=== PATIENT | male | born 1950 | race Caucasian/White ===

== ENCOUNTER → 2017-06-25 13:24 | Outpatient (CLI) | payer MEDICARE, OTHER, SELFPAY ==
--- NOTE | 2017-06-25 13:29 | CT_ITS ---
STUDY: LOW DOSE CT LUNG CANCER SCREENING REASON FOR EXAM: Male, 66 years old. TOBACCO ABUSE SMOKER X40+ YEARS 1.5PPD QUIT X1.5 YEARS AGO +HTN-RX CONTROLLED RADIATION DOSAGE (If Supplied By Facility): CTDIvol = ( 3.40 ) mGy, DLP = ( 112.31 ) mGycm TECHNIQUE: No contrast was administered. Low dose technique was utilized (average mAS-38 and kVp 120). 1.25 mm axial source images with a slice interval of 1.25-mm were reconstructed in lung windows. 2.5 mm axial source images with a slice interval of 2.5-mm were reconstructed in lung windows. 5.0 mm axial source images with a slice interval of 5.0-mm were reconstructed in soft tissue windows. Nodule measured using lung windows on PACS and/or independent workstation with automated measurement of minimum and maximum diameter. Nodule measurement reported as average diameter rounded to the nearest whole number. Growth is defined as an increase ins size of greater than 1.5 mm. COMPARISON: None. NODULES: There is mild thickening of the bronchial lundy in the perihilar regions suggesting chronic bronchitis. There is no demonstrated pleural abnormality. Normal heart and pericardium. Normal mediastinum. Normal hilar regions. Normal unenhanced pulmonary arteries. Normal aorta arch and descending thoracic aorta. There is an old compression fracture of T7 . Bilateral cervical ribs are noted. There is no demonstrated abnormality of the visualized upper abdomen. CT/Low Dose CT Lung Screening IMPRESSION: Lung-RADS category 2. There is an old compression fracture of T7 . Bilateral cervical ribs are noted. Recommendation: Routine screening CT scan in one year. IMPORTANT NOTES FOR USE: ACR Lung-RADS Version 1.0 Assessment Categories Release Date: June 23, 2013 Category: Coded 0-4 bases on nodule(s) with highest degree of suspicion. Negative screen is defined as categories 1 and 2; a positive screen is defined as categories 3 and 4. Category 3 and 4A nodules that are unchanged on interval CT should be coded as category 2, and individuals returned to screening in 12 months. Category 4X: Category 3 or 4 nodules with additional imaging findings that increase the suspicion of lung cancer, such as spiculation, GGN that doubles in size in 1 year, enlarged lymph notes, etc. Category Modifiers: S (significant finding unrelated to lung cancer) and C (prior history of treated lung cancer) may be added to the 0-4 Lung-RADS Electronically Signed: Rayray Hood MD at 11:40 EDT Tel , Service support ,
== END ==
PROVIDERS: Family Provider Family Medicine; PCP Family Medicine; Visit Provider Internal Medicine Pulmonary Disease
DX: Z87.891 Personal history of nicotine dependence (principal)
CPT/HCPCS: G0297

== ENCOUNTER → 2017-09-12 12:36 | Outpatient (CLI) | payer MEDICARE, OTHER, SELFPAY ==
--- NOTE | 2017-09-12 12:38 | ECHOCS_ITS ---
Reason For Study: Afib, Aflutter Procedure This was a 2D Doppler, Color Flow transthoracic echocardiogram. Exam performed in department. Left Ventricle Normal LV size. Sigmoid septum. Left ventricular systolic function is normal. The estimated ejection fraction is 65 %. No regional wall motion abnormalities noted. Right Ventricle Normal RV size. Normal systolic function. Atria The left atrium is moderately enlarged. The right atrium is mildly enlarged. Mitral Valve Normal mitral valve. Trivial eccentric mitral valve insufficiency. Tricuspid Valve Normal tricuspid valve. Mild tricuspid valve insufficiency. Pulmonary artery systolic pressure is 36 mmHg. Aortic Valve Trisinus/trileaflet aortic valve. Moderate focal aortic valve calcification. Mild (1+) eccentric aortic valve insufficiency. Pulmonic Valve Normal pulmonic valve. Great Vessels Normal aortic root. The pulmonary artery is normal size. Normal inferior vena cava. Pericardium/Pleural No pericardial effusion. Medication Definity0.6ml given slow IV push to enhance endocardial definition. MMode/2D Measurements & Calculations LVIDd: 4.9 cm IVSd: 1.7 cm Ao root diam: 3.6 cm LVIDs: 3.2 cm LVPWd: 1.1 cm RVDd: 4.9 cm FS: 35.6 % LAV(MOD-bp): 130.6 ml LAV(MOD-bp) Indexed: 52.9 ml/m2 LA A4 area: 34.6 cm2 RA A4 area: 26.8 cm2 LAV(MOD-sp2): 142.1 ml LAV(MOD-sp4): 120.3 ml Doppler Measurements & Calculations MV E max clemente: 91.9 cm/sec Ao V2 max: 132.3 cm/sec LV V1 max: 92.8 cm/sec Ao max P.1 mmHg LV V1 max P.5 mmHg Ao V2 mean: 97.5 cm/sec Ao mean P.2 mmHg Ao V2 VTI: 27.2 cm PA V2 max: 94.7 cm/sec TR max clemente: 284.1 cm/sec TR max P.3 mmHg Interpretation Summary Normal LV size. Left ventricular systolic function is normal. The estimated ejection fraction is 65 %. Mild tricuspid valve insufficiency. Contrast injection was performed. Ordering Physician: Magen Callejas Referring Physician: Magen Callejas Performed By: Meghan Gamez, AVERY, RVT
== END ==
PROVIDERS: Family Provider Family Medicine; PCP Family Medicine; Visit Provider Internal Medicine Cardiovascular Disease
DX: I48.91 Unspecified atrial fibrillation (principal); I47.2 Ventricular tachycardia
CPT/HCPCS: 93225; 93226; 93306; Q9957; A4216; C8929

== ENCOUNTER → 2018-06-25 12:42 | Outpatient (CLI) | payer MEDICARE, OTHER, SELFPAY ==
[2018-04-26 13:01] VITALS: BMI 26.8
--- NOTE | 2018-06-25 12:45 | CT_ITS ---
STUDY: LOW DOSE CT LUNG CANCER SCREENING REASON FOR EXAM: Male, 67 years old. Smoking history, follow-up RADIATION DOSAGE (If Supplied By Facility): CTDIvol = ( 4.02 ) mGy, DLP = ( 142.95 ) mGycm TECHNIQUE: No contrast was administered. Low dose technique was utilized (average mAS-38 and kVp 120). 1.25 mm axial source images with a slice interval of 1.25-mm were reconstructed in lung windows. 2.5 mm axial source images with a slice interval of 2.5-mm were reconstructed in lung windows. 5.0 mm axial source images with a slice interval of 5.0-mm were reconstructed in soft tissue windows. Nodule measured using lung windows on PACS and/or independent workstation with automated measurement of minimum and maximum diameter. Nodule measurement reported as average diameter rounded to the nearest whole number. Growth is defined as an increase ins size of greater than 1.5 mm. COMPARISON: CT chest 06/25/2017. FINDINGS: Lung nodules Stable 3 mm peripheral right lower lobe nodule on series 249. No new or enlarging pulmonary nodule. No focal pulmonary consolidation. Lungs COPD: There is mild bilateral upper lobe paraseptal emphysema. There is mild biapical pleural parenchymal scarring. Fibrosis: None. Lymph nodes: None. Other findings: None. Pleural space Effusion: None. Calcification: None. Thickening: None. Heart Heart size: Mildly enlarged. Coronary calcification: Moderate to marked coronary artery calcifications. Pericardial effusion: None. Other findings: There are mild aortic calcification. Upper abdomen: None. Thorax: Again seen is mild anterior wedging of T7. Base of neck: None. CT/Low Dose CT Lung Screening IMPRESSION: Lung-RADS category 2 - Continue annual screening with LDCT in 12 months. IMPORTANT NOTES FOR USE: ACR Lung-RADS Version 1.0 Assessment Categories Release Date: June 23, 2013 Category: Coded 0-4 bases on nodule(s) with highest degree of suspicion. Negative screen is defined as categories 1 and 2; a positive screen is defined as categories 3 and 4. Category 3 and 4A nodules that are unchanged on interval CT should be coded as category 2, and individuals returned to screening in 12 months. Category 4X: Category 3 or 4 nodules with additional imaging findings that increase the suspicion of lung cancer, such as spiculation, GGN that doubles in size in 1 year, enlarged lymph notes, etc. Category Modifiers: S (significant finding unrelated to lung cancer) and C (prior history of treated lung cancer) may be added to the 0-4 Lung-RADS Electronically Signed: Sydnie Rodriguez, at 16:49 EDT Tel , Service support ,
== END ==
PROVIDERS: Referring Provider Internal Medicine Pulmonary Disease; Visit Provider Internal Medicine Pulmonary Disease
DX: Z87.891 Personal history of nicotine dependence (principal)
CPT/HCPCS: G0297

== ENCOUNTER → 2019-06-26 12:43 | Outpatient (CLI) | payer MEDICARE, OTHER, SELFPAY ==
[2018-04-26 13:01] VITALS: BMI 26.8
[2019-01-28 08:46] VITALS: BMI 30.2
--- NOTE | 2019-06-26 12:47 | CT_ITS ---
STUDY: LOW DOSE CT LUNG CANCER SCREENING REASON FOR EXAM: Male, 68 years old. Tobacco use, stopped smoking 2 years ago, smoked 1.5 packs/day x 40 years, hypertension, 220lbs. RADIATION DOSAGE (If Supplied By Facility): CTDIvol = ( 4.02 ) mGy, DLP = ( 142.45 ) mGycm TECHNIQUE: No contrast was administered. Low dose technique was utilized (average mAS-38 and kVp 120). 1.25 mm axial source images with a slice interval of 1.25-mm were reconstructed in lung windows. 2.5 mm axial source images with a slice interval of 2.5-mm were reconstructed in lung windows. 5.0 mm axial source images with a slice interval of 5.0-mm were reconstructed in soft tissue windows. Nodule measured using lung windows on PACS and/or independent workstation with automated measurement of minimum and maximum diameter. Nodule measurement reported as average diameter rounded to the nearest whole number. Growth is defined as an increase ins size of greater than 1.5 mm. COMPARISON: Comparison is made with prior examination dated June 25, 2018. NODULES: Stable 3 mm noncalcified nodule in the peripheral lateral anterior aspect of the right lower lobe. Emphysema: Stable scarring in the upper lobes more prominent on the right side. Mild degree of emphysematous changes bilaterally. Aorta: Mild calcific plaques of the aortic arch. Coronary arteries: Coronary artery calcification. Heart: Prominence of the left atrium. Mediastinal nodes: Benign appearing mediastinal lymph nodes. Other chest and abdominal findings: Anterior wedging of the T7 vertebrae. CT/Low Dose CT Lung Screening IMPRESSION: Lung-RADS category 2 - Continue annual screening with LDCT in 12 months. IMPORTANT NOTES FOR USE: ACR Lung-RADS Version 1.0 Assessment Categories Release Date: June 23, 2013 Category: Coded 0-4 bases on nodule(s) with highest degree of suspicion. Negative screen is defined as categories 1 and 2; a positive screen is defined as categories 3 and 4. Category 3 and 4A nodules that are unchanged on interval CT should be coded as category 2, and individuals returned to screening in 12 months. Category 4X: Category 3 or 4 nodules with additional imaging findings that increase the suspicion of lung cancer, such as spiculation, GGN that doubles in size in 1 year, enlarged lymph notes, etc. Category Modifiers: S (significant finding unrelated to lung cancer) and C (prior history of treated lung cancer) may be added to the 0-4 Lung-RADS Electronically Signed: Corey Awad, at 14:06 EDT , Service support ,
== END ==
PROVIDERS: Referring Provider Internal Medicine Pulmonary Disease; Visit Provider Internal Medicine Pulmonary Disease
DX: Z87.891 Personal history of nicotine dependence (principal)
CPT/HCPCS: G0297

== ENCOUNTER → 2020-05-20 12:07 | Outpatient (CLI) | payer MEDICARE, OTHER, SELFPAY ==
[2020-05-20 10:08] VITALS: BMI 34.0
[2020-05-20 13:40] LABS: Absolute Lymphocyte Count 2.12 X10^3/uL (0.83-4.51); Absolute Neutrophil Count 3.4 X10^3/uL (2.0-7.7); Basophil# 0.06 X10^3/uL; Eosinophil# 0.08 X10^3/uL; Eosinophils% 1.3 % (0-5); Hematocrit 51.6 % (40-54); Lymphocyte # 2.12 X10^3/ul (4.0); Lymphocyte % 33.8 % (19-41); Mean Corp Hgb Conc 32.9 g/dL (32-36); Mean Corpuscular Hgb 29.6 pg (27.0-32.0); Mean Corpuscular Volume 89.9 fL (80-94); Mean Platelet Vol. 9.9 fl (6.2-12.0); Monocyte# 0.61 X10^3/uL; Monocyte% 9.7 % (0-10); NRBC Flagged by Analyzer 0 % (0-5); Neutrophil # 3.38 X10^3/uL (2.7-7.7); Neutrophil % 53.9 % (47-70); Platelet Count 192 K/mm3 (150-450); RBC Distribution Width CV 13.2 % (11.6-14.6); RBC Distribution Width SD 43.7 fl (35.1-43.9); Red Blood Count 5.74 M/mm3 (4.6-6.2); White Blood Count 6.3 K/mm3 (4.4-11.0)
[2020-05-20 14:16] LABS: Anion Gap 4 (5-15); BUN 22 mg/dL (7-18); BUN/Creat Ratio 25.8 RATIO (10-20); Calcium,Total 9.2 mg/dL (8.5-10.1); Chloride 104 mmol/L (98-107); Creatinine, Serum 0.85 mg/dL (0.70-1.30); EST Glomerular Filtration Rate 95 mL/min (>60); Est Glom Filt Rate - Afr Amer 115 mL/min (>60); Glucose 96 mg/dL (74-106); Potassium 4.1 mmol/L (3.5-5.1); Sodium Level 136 mmol/L (136-145)
== END ==
PROVIDERS: Referring Provider Internal Medicine Cardiovascular Disease; Visit Provider Internal Medicine Cardiovascular Disease
DX: I48.11 Longstanding persistent atrial fibrillation (principal); I10 Essential (primary) hypertension
CPT/HCPCS: 36415; 80048; 85025

== ENCOUNTER → 2020-05-31 08:47 | Outpatient (CLI) | payer MEDICARE, OTHER, SELFPAY ==
[2020-05-20 10:08] VITALS: BMI 34.0
--- NOTE | 2020-05-31 08:49 | ECHOCS_ITS ---
Reason For Study: HTN Procedure This was a 2D Doppler, Color Flow transthoracic echocardiogram. The study was technically difficult. Contrast injection was performed. Exam performed in department. Left Ventricle Normal LV size. Mild assymetric septal hypertrophy. Moderate concentric left ventricular hypertrophy. Left ventricular systolic function is normal. The estimated ejection fraction is 65 %. No regional wall motion abnormalities noted. Right Ventricle Normal RV size. Normal systolic function. Atria The left atrium is severely enlarged. The right atrium is moderately enlarged. Mitral Valve Mitral valve not well visualized. Mild (1+) eccentric mitral valve insufficiency. Tricuspid Valve Normal tricuspid valve. Mild (1+) tricuspid valve insufficiency. Pulmonary artery systolic pressure is 44 mmHg. Mild pulmonary hypertension. Aortic Valve Trisinus/trileaflet aortic valve. Mild diffuse aortic valve thickening. Pulmonic Valve The pulmonic valve is not well visualized. Great Vessels Normal aortic root. The pulmonary artery is normal size. Normal inferior vena cava. Pericardium/Pleural No pericardial effusion. Medication 22 gauge I.V. with prn adaptor inserted into right arm. Diluted definity 3ml given slow IV push to enhance endocardial definition. MMode/2D Measurements & Calculations LVIDd: 6.0 cm IVSd: 1.3 cm LA dimension: 5.2 cm LVIDs: 4.0 cm LVPWd: 1.4 cm RVDd: 5.0 cm FS: 34.3 % LAV(MOD-bp): 166.8 ml LA A4 area: 42.4 cm2 RA A4 area: 33.6 cm2 LAV(MOD-bp) Indexed: 80.7 ml/m2 LAV(MOD-sp2): 152.1 ml LAV(MOD-sp4): 174.9 ml Doppler Measurements & Calculations MV E max clemente: 100.2 cm/sec Ao V2 max: 108.5 cm/sec LV V1 max: 84.7 cm/sec Ao max P.9 mmHg LV V1 max P.9 mmHg PA V2 max: 107.9 cm/sec TR max clemente: 333.2 cm/sec TR max P.4 mmHg ECHO/Echo Complete W/ Contrast Interpretation Summary Normal LV size. Left ventricular systolic function is normal. Mild assymetric septal hypertrophy. The estimated ejection fraction is 65 %. Moderate concentric left ventricular hypertrophy. Pulmonary artery systolic pressure is 44 mmHg. Mild pulmonary hypertension. Contrast injection was performed. Ordering Physician: Magen Callejas Referring Physician: Sandra Stewart Performed By: Willam Calvert RCS
== END ==
PROVIDERS: Referring Provider Internal Medicine Cardiovascular Disease; Visit Provider Internal Medicine Cardiovascular Disease
DX: I10 Essential (primary) hypertension (principal); I27.20 Pulmonary hypertension, unspecified
CPT/HCPCS: 93306; Q9957; A4216; C8929

== ENCOUNTER 2023-04-24 07:35 | Outpatient (RCR) | payer MEDICARE, OTHER, SELFPAY ==
[2023-04-24 08:01] VITALS: BP 144/79; PULSE 87; RESP 18; TEMP 36.6
--- NOTE | 2023-04-24 09:01 | HP.PCM_ITS ---
History of Present Illness Date of Service: 04/24/23 Chief Complaint: draining legs History of Wound: This 65-year-old male presents to the wound center with draining swollen legs of a number of months duration. Patient has exogenous obesity and chronic lymphedema. He has been seen at the wound center previously for the same problem. He has lymphedema pumps at home. Patient has long- standing essential hypertension and diabetes. The patient is noncompliant with PCP follow-up of his chronic problems. Patient states he does check his blood sugars at home and uses lymphedema pumps. Patient has been wearing Aneesh wraps and gauze bandages on his legs. He has had no fever, chills, myalgias or a rthralgias. [facility] Medical History Atrial fibrillation with rapid ventricular response Chronic diastolic (congestive) heart failure COPD (chronic obstructive pulmonary disease) Essential (primary) hypertension Hyperlipidemia Hypoxia Longstanding persistent atrial fibrillation Lymphedema of extremity Nicotine dependence Non-ischemic cardiomyopathy Nonsustained ventricular tachycardia Obesity Obstructive sleep apnea (adult) (pediatric) Right lower lobe pulmonary nodule Secondary pulmonary arterial hypertension Type 2 diabetes mellitus without complications Home Medications rivaroxaban 20 mg tablet (Xarelto) 20 mg PO QPM #30 tabs 03/30/22 [Rx Last Taken Unknown] metoprolol tartrate 25 mg tablet See Rx Instructions .Route .COMPLEX #90 tabs 02/07/23 [Rx Last Taken Unknown] furosemide 40 mg tablet 40 mg PO DAILY #90 tabs 03/01/23 [Rx Last Taken Unknown] lisinopril 10 mg tablet 10 mg PO DAILY #90 tabs 03/01/23 [Rx Last Taken Unknown] cephalexin 500 mg capsule 500 mg PO Q12H 04/24/23 [History Last Taken Unknown] Allergy/AdvReac Type Severity Reaction Status Date / Time No Known Allergies Allergy Verified 07/21/22 13:45 Family History Brother Diabetes Sister Diabetes Social History Smoking Status: Former smoker quit date: 02/26/17 pack-years: 60 how long ago did patient quit smokin alcohol intake: never substance use type: does not use caffeine: Yes what type of physical activity do you participate in: walking frequency: daily ROS Cardiovascular Cardiovascular: Denies abdominal bloating, abdominal edema or abdominal pain Respiratory/Chest Respiratory/Chest: Denies change in mental status, change in phlegm color or difficulty clearing secretions Gastrointestinal Gastrointestinal: Denies belching, bloating or coffee ground emesis Genitourinary Genitourinary: Denies anuria, difficulty urinating or erectile dysfunction Musculoskeletal Musculoskeletal: Denies atrophy, back pain or joint swelling Integumentary Integumentary: Denies bleeding lesions, change in hair or hirsutism Neurologic Neurologic: Denies abnormal hearing, abnormal movements or convulsions Psychiatric Psychiatric: Denies abnormal sleep pattern, anhedonia or change in appetite Vital Signs Vital Signs Vital Signs: 04/24/23 08:01 Temperature 97.8 F Temperature Source Temporal Pulse Rate 87 Respiratory Rate 18 Blood Pressure 144/79 H Blood Pressure Mean 100 Blood Pressure Source Monitor Blood Pressure Position Sitting Blood Pressure Location Left Arm Oxygen Delivery Method Room Air Physical Exam Narrative Vascular: Dorsalis and posterior tibial pulses palpable 2 out of 4 bilateral lower extremity. +4 pitting edema to bilateral lower extremity. Diffuse erythema to bilateral lower extremity encompassing entire foot and below the knee skin surface. Neurologic: Light touch protective sensation intact. No evidence of clonus. Dermatologic: Diffuse edema erythema and partial-thickness ulcerations to bilateral lower extremity with erythema. No other signs of infection. Musculoskeletal: Muscular strength full to bilateral lower extremity compartments. No evidence of wound forming deformity noted. Const alert and oriented x3 Debridement Note Debridement Note Post-Debridement Measurements and Additional Note: Post-Debridement Measurements/Treatment - Nurse 1 - General Ulcer Assessment Start: 04/24/23 08:01 Freq: Status: Active Protocol: [email or web address].[email or web address] Activity Type Activity Date Activity User E-sign Co-sign Detail Recorded Client Recorded Date Recorded By Document 04/24/23 08:01 Desktop 04/24/23 08:17 04/24/23 08:01 - Today's Visit Information Type of service Initial Visit Arrival Mode Ambulatory Transfer Assistance None Patient Identification Verified (Name & Yes ) Patient Requires Transmission-Based No Precautions Height and Weight Height 6 ft 1 in Vital Signs Temperature (97.8 F-99.1 F) 97.8 F Temperature Source Temporal Pulse Rate (60-100) 87 Pulse Location Monitor Respiratory Rate (12-18) 18 Respiratory rate source Observation Oxygen Delivery Method Room Air Blood Pressure (90/60-120/80) 144/79 H Blood Pressure Mean 100 Source Monitor Position Sitting Blood Pressure Location Left Arm History Since Last Visit- (Skip if this is Patient's initial visit) Left Footwear Regular Shoe Right Footwear Regular Shoe Pain Scale: 0-10 Numeric Is Patient Pain Free? Yes Lower Extremity Assessment/ Foot Assessment/ Toe Nail Assessment Right -Claudication Assessment None -Posterior Tibial Palpable Yes -Posterior Tibial Doppler Monophasic -Dorsalis Pedis Palpable Yes -Dorsalis Pedis Doppler Monophasic -Extremity Color Red -Hair Growth on Legs No -Hair Growth on Toes No -Temperature of Extremity Warm -Capillary Refill Less than 3 Seconds -Blanched when Elevated No -Other Deformity No -Prior Foot Ulcer No -Charcot Joint No -Prior Amputation No -Thick Yes -Discolored Yes -Deformed No -Improper Length & Hygeine Yes Left -Claudication Assessment None -Posterior Tibial Doppler Monophasic -Dorsalis Pedis Palpable Yes -Dorsalis Pedis Doppler Monophasic -Extremity Color Red -Hair Growth on Legs No -Hair Growth on Toes No -Temperature of Extremity Warm -Capillary Refill Less than 3 Seconds -Blanched when Elevated No -Other Deformity No -Prior Foot Ulcer No -Charcot Joint No -Prior Amputation No -Thick Yes -Discolored Yes -Deformed No -Improper Length & Hygeine Yes Communication Assessment Preferred language Persian Steel Rigger Required No Able to Read Yes Able to Write Yes Communication Tools None Right Hearing Abillity Normal Left Hearing Abillity Normal Visual Assistive Devices Glasses Functional Assessment Recent Decline in Ability to Perform Denies Any Declines Assistive Device With Patient No Culture/Cheondoism/Career Based Intervention Coordinator Cultural/Cheondoism Needs that may affect No Treatment Plan Would you allow our hospital medical coding technician to No meet you for the purpose of spiritual/ emotional support? Career Based Intervention Coordinator to contact place of catholic No Teaching: Wound Center Compression Wraps & Stockings -Person Taught Patient -Teaching Method Discussion -Response to teaching Verbalize understanding WC - Nurse 1 - General Ulcer Measurement Start: 04/24/23 08:01 Freq: Status: Active Protocol: Activity Type Activity Date Activity User E-sign Co-sign Detail Recorded Client Recorded Date Recorded By Document 04/24/23 08:01 GM Desktop 04/24/23 08:17 04/24/23 08:01 Wound Center Nurse 1 Right Calf (cm) 48.5 Right Ankle (cm) 31.2 Left Calf (cm) 49.2 Left Ankle (cm) 31.7 WC - Nurse 2 - General Ulcer CM Notes Start: 04/24/23 08:01 Freq: Status: Active Protocol: Activity Type Activity Date Activity User E-sign Co-sign Detail Recorded Client Recorded Date Recorded By Document 04/24/23 08:45 JF Laptop 04/24/23 08:45 JF 04/24/23 08:45 Pain Scale: 0-10 Numeric Is Patient Pain Free? Yes WC - Nurse 3 - General Ulcer D/C NN Start: 04/24/23 08:01 Freq: Status: Active Protocol: Activity Type Activity Date Activity User E-sign Co-sign Detail Recorded Client Recorded Date Recorded By Document 04/24/23 08:51 GM Desktop 04/24/23 08:52 GM 04/24/23 08:51 Wound Care Center Nurse 3 LLE -Ulcer Cleansing Not Cleansed -Foul Odor after Cleansing No -Primary Dressing Applied Optilok 8x12 -Optilok 8x12 1 1, R LAT. LOWER LEG -Primary Dressing Applied Optilok 8x12 -Optilok 8x12 1 Left -Lotion applied to leg before No compression wrap -Multi-Layered Wrap Application Multi-Layer Comp - Bilat ($ ) Pain Scale: 0-10 Numeric Is Patient Pain Free? Yes Teaching: Wound Center Compression Wraps & Stockings -Person Taught Patient -Teaching Method Discussion -Response to teaching Verbalize understanding Control Swelling with Leg Elevation -Person Taught Patient -Teaching Method Discussion -Response to teaching Verbalize understanding - Visit Discharge Discharge Condition Stable Ambulatory Status Ambulatory Transportation Private Auto Medication Reconcilliation completed & Yes provided to patient/care provider Clinical Summary of Care Provided Yes Assessment/Plan Assessment/Plan (1) Venous insufficiency (chronic) (peripheral): CODE(S): I87.2 - Venous insufficiency (chronic) (peripheral) PLAN: Exam performed Diffuse erythema, venous stasis dermatitis versus cellulitis. Patient is completing 10-day course of Keflex, 2 days left Today we will dress with silver alginate, DSD, 3M compression wraps New arterial, venous studies ordered Rx for triamcinolone ointment 0.1% to be applied with dressing changes Patient will follow-up on Sunday for dressing changes In the meantime recommend compression elevation and exercise for edema management Patient will return to the lymphedema pumps once edema is improved and erythema resolved Follow-up in 1 week (2) Cellulitis of right lower limb: CODE(S): L03.115 - Cellulitis of right lower limb (3) Cellulitis of left lower limb: CODE(S): L03.116 - Cellulitis of left lower limb
== END 2023-04-26 23:59 | disposition home or self-care (01) ==
LOC: WC 07:35
PROVIDERS: Visit Provider Podiatrist
DX: I87.2 Venous insufficiency (chronic) (peripheral) (principal); J44.9 Chronic obstructive pulmonary disease, unspecified; I42.8 Other cardiomyopathies; I50.32 Chronic diastolic (congestive) heart failure; I11.0 Hypertensive heart disease with heart failure; I27.21 Secondary pulmonary arterial hypertension; I48.11 Longstanding persistent atrial fibrillation; E11.9 Type 2 diabetes mellitus without complications; L03.115 Cellulitis of right lower limb; L03.116 Cellulitis of left lower limb; I89.0 Lymphedema, not elsewhere classified; R60.0 Localized edema; E78.5 Hyperlipidemia, unspecified; E66.09 Other obesity due to excess calories; Z79.01 Long term (current) use of anticoagulants; Z79.899 Other long term (current) drug therapy; Z87.891 Personal history of nicotine dependence
CPT/HCPCS: 29581; 99214; G0463

== ENCOUNTER 2023-05-15 08:00 | Outpatient (RCR) | payer MEDICARE, OTHER, SELFPAY ==
[2023-04-27 00:41] VITALS: BP 144/79; PULSE 87; RESP 18; TEMP 36.6
[2023-04-27 08:27] VITALS: BP 141/91; PULSE 92; RESP 18; TEMP 35.9
--- NOTE | 2023-04-30 13:48 | ART_ITS ---
Reason For Study: PVD Procedure A bilateral lower extremity continuous wave Doppler with analog waveform analysis,segmental pressures,and ankle brachial indexes without exercise. Left Segmental Pressures Left brachial= 126mmHg. Left posterior tibial artery = 156mmHg. Left dorsalis pedis artery = 163mmHg. Left digit = 106 mmHg. The left posterior tibial artery waveforms are triphasic. The left dorsalis pedis waveforms are triphasic. Right Segmental Pressures Right brachial= 135mmHg. Right posterior tibial artery = 142mmHg. Right dorsalis pedis artery = 169mmHg. Right digit = 109 mmHg. The right posterior tibial artery waveforms are triphasic. The right dorsalis pedis waveforms are triphasic. Indices The right ankle brachial index by the posterior tibial artery is 1.05. The right ankle brachial index by the dorsalis pedis is 1.25. The right digital-brachial index is 0.81. The left ankle brachial index by the posterior tibial artery is 1.16. The left ankle brachial index by the dorsalis pedis is 1.21. The left digital-brachial index is 0.79. VL/Lower Ext Art Exam w/o Exercis Interpretation Summary Triphasic Doppler waveforms are noted at ankle level bilaterally. Pulse-volume recordings appear satisfactory at all levels bilaterally. Resting ankle-brachial indices are norm al bilaterally. Digital-brachial indices are normal bilaterally. There is no evidence of significant arterial occlusive disease in the lower ext remities bilaterally. Ordering Physician: Alicia Rodriguez Referring Physician: ALICIA RODRIGUEZ DPM Performed By: Dayton Andre RVT
--- NOTE | 2023-04-30 13:48 | VDLE_ITS ---
Reason For Study: BLE EDEMA RIGHT LEFT CFV is compressible, phasic, and INCOMPETENT CFV is compressible, phasic, and INCOMPETENT for greater than 1.0 second. for greater than 1.0 second. FV is compressible, phasic, and INCOMPETENT FV is compressible, phasic, and INCOMPETENT for greater than 1.0 second. for greater than 1.0 second. POP V is compressible, spontaneous, phasic, POP V is compressible, phasic, and competent and demonstrates normal INCOMPETENT for greater than 1.0 second. augmentation. T/P Trunk is compressible. T/P Trunk is compressible. PTV is compressible. PTV is compressible. LT PerV is compressible. RT PerV is compressible. GSV proximal thigh measures 0.90 x 0.85 cm. SFJ is competent and measures 1.07 cm. GSV at knee measures 0.48 x 0.53 cm. GSV proximal thigh measures 0.71 x 0.81 cm. SFJ is competent and measures 0.89 cm. GSV at knee measures 0.74 x 0.86 cm. GSV INCOMPETENT throughout for greater than GSV INCOMPETENT throughout for greater than 0.5 seconds. 0.5 seconds. ASV mid thigh is INCOMPETENT for greater than SSV proximal calf is competent and measures 0.5 seconds and measures 0.87 x 0.96 cm. 0.49 x 0.50 cm. ASV proximal calf is INCOMPETENT for greater Procedure than 0.5 seconds and measures 0.74 x 0.82 cm. This is a venous duplex using B-mode, color SSV proximal calf is competent and measures flow and spectral Doppler. 0.38 x 0.46 cm. Exam performed in department. The exam was diagnostic. Patient was scanned in reverse Trendelenburg position during reflux assessment. VL/Venous Duplex US - Waqas Extrem Interpretation Summary Deep veins of the lower extremities are bilaterally patent and compressible seg mentally. There is no evidence of deep vein thrombosis on either side. Valvular incompetence is noted within the deep venous system bilaterally. The great saphenous veins appear bilaterally patent and compressible segmentally. Sapheno-femoral junctions are bilaterally competent . Segmental va lvular incompetence is noted within the great saphenous veins bilaterally. Small saphenous veins ar e patent and competent bilaterally. The accessory saphenous veins in the left mid-thigh and proximal calf are incompetent. Ordering Physician: Leonard Rodriguez Referring Physician: Robert Peña Performed By: Dayton Andre RVT
[2023-05-01 08:03] VITALS: BP 144/77; PULSE 85; RESP 18; TEMP 36.7
--- NOTE | 2023-05-01 08:43 | PN.PCM_ITS ---
History of Present Illness Date of Service: 05/01/23 Chief Complaint: draining legs History of Wound: This 65-year-old male presents to the wound center with draining swollen legs of a number of months duration. Patient has exogenous obesity and chronic lymphedema. He has been seen at the wound center previously for the same problem. He has lymphedema pumps at home. Patient has long- standing essential hypertension and diabetes. The patient is noncompliant with PCP follow-up of his chronic problems. Patient states he does check his blood sugars at home and uses lymphedema pumps. Patient has been wearing Aneesh wraps and gauze bandages on his legs. He has had no fever, chills, myalgias or a rthralgias. Subjective Subjective Patient notes improvement in swelling to bilateral lower extremity. Patient had some discomfort initially with compression wraps which improved after edema improved. Patient denies any fever chills nausea vomiting chest pain calf pain shortness of breath. No other complaints at current. Objective Data Objective Data Vital Signs: Vital Signs Temp Pulse Resp BP O2 Del Method 98.0 F 85 18 144/77 H Room Air 05/01/23 08:03 05/01/23 08:03 05/01/23 08:03 05/01/23 08:03 05/01/23 08:03 Oxygen Delivery Method Room Air Physical Exam Narrative Vascular: Dorsalis and posterior tibial pulses palpable 2 out of 4 bilateral lower extremity. +4 pitting edema to bilateral lower extremity. Diffuse erythema to bilateral lower extremity encompassing entire foot and below the knee skin surface. Neurologic: Light touch protective sensation intact. No evidence of clonus. Dermatologic: Diffuse edema erythema and partial-thickness ulcerations to bilateral lower extremity with erythema. No other signs of infection. Musculoskeletal: Muscular strength full to bilateral lower extremity compartments. No evidence of wound forming deformity noted. Const alert and oriented x3 Debridement Note Debridement Note Post-Debridement Measurements and Additional Note: Post-Debridement Measurements/Treatment WC - Nurse 1 - General Ulcer Assessment Start: 04/27/23 08:27 Freq: Status: Active Protocol: [email or web address] Activity Type Activity Date Activity User E-sign Co-sign Detail Recorded Client Recorded Date Recorded By Document 04/27/23 08:27 RB Desktop 04/27/23 08:29 RB Document 05/01/23 08:03 KW Desktop 05/01/23 08:10 KW 04/27/23 05/01/23 08:27 08:03 - Today's Visit Information Type of service Nurse-only Follow-up Visit Visit (Physician/CERTIFIED BENCH JEWELER TECHNICIAN ) Arrival Mode Ambulatory Ambulatory Transfer Assistance None Patient Identification Verified (Name & Yes Yes ) Patient Requires Transmission-Based No Precautions Vital Signs Temperature (97.8 F-99.1 F) 96.6 F L 98.0 F Temperature Source Temporal Temporal Pulse Rate (60-100) 92 85 Pulse Location Monitor Respiratory Rate (12-18) 18 18 Respiratory rate source Observation Observation Oxygen Delivery Method Room Air Blood Pressure (90/60-120/80) 141/91 H 144/77 H Blood Pressure Mean (mm Hg) 107 99 Source Monitor Monitor Position Semi-Fowlers Semi-Fowlers Blood Pressure Location Left Arm Left Arm History Since Last Visit- (Skip if this is Patient's initial visit) Have you changed medications since your No No last visit? Any new allergies or adverse reactions No No Had a fall/change in ADL's that may No No increase risk of falls Signs or symptoms of abuse and/or No No neglect since last visit Have you been in the hospital since your No No last visit? Has dressing in place as prescribed Yes No Has compression in place as prescribed Yes No Has offloadiing in place as prescribed No N/A Experienced any changes in pain level or No No management Left Footwear Regular Shoe Right Footwear Regular Shoe Pain Scale: 0-10 Numeric Is Patient Pain Free? Yes Yes - Nurse 1 - General Ulcer Measurement Start: 04/27/23 08:27 Freq: Status: Active Protocol: Activity Type Activity Date Activity User E-sign Co-sign Detail Recorded Client Recorded Date Recorded By Document 04/27/23 08:27 RB Desktop 04/27/23 08:29 RB Document 05/01/23 08:03 KW Desktop 05/01/23 08:10 KW 04/27/23 05/01/23 08:27 08:03 Wound Center Nurse 1 1, R LAT. LOWER LEG -Current Size (cm) - Length 0.1 -Current Size (cm) - Width 0.1 -Current Size (cm) - Depth 0.1 -Total Square Cm 0.01 -Ulcer Cleansing Soap and Water Lower Limb Edema Present Yes Right Calf (cm) 43 46 Right Ankle (cm) 28.5 28.2 Left Calf (cm) 42 46.5 Left Ankle (cm) 29.5 29.3 - Nurse 2 - General Ulcer CM Notes Start: 04/27/23 08:27 Freq: Status: Active Protocol: Activity Type Activity Date Activity User E-sign Co-sign Detail Recorded Client Recorded Date Recorded By Document 05/01/23 08:32 JF Laptop 05/01/23 08:32 JF 05/01/23 08:32 Wound Center Nurse 2 1, R LAT. LOWER LEG -Correct Patient No -Correct Side, Site, Position No -Correct Procedure No -Procedure Performed No -Wound/Ulcer Outcome Not Healed Pain Scale: 0-10 Numeric Is Patient Pain Free? Yes - Nurse 3 - General Ulcer D/C NN Start: 04/27/23 08:27 Freq: Status: Active Protocol: Activity Type Activity Date Activity User E-sign Co-sign Detail Recorded Client Recorded Date Recorded By Document 04/27/23 08:27 RB Desktop 04/27/23 08:29 RB 04/27/23 08:27 Vital Signs Temperature (97.8 F-99.1 F) 96.6 F L Temperature Source Temporal Pulse Rate (60-100) 92 Pulse Location Monitor Respiratory Rate (12-18) 18 Respiratory rate source Observation Blood Pressure (90/60-120/80) 141/91 H Blood Pressure Mean (mm Hg) 107 Source Monitor Position Semi-Fowlers Blood Pressure Location Left Arm Pain Scale: 0-10 Numeric Is Patient Pain Free? Yes Wound Care Center Nurse 3 1, R LAT. LOWER LEG -Primary Dressing Applied Optilok 8x12 -Other Dressing triamcinolone cream to LE bilat -Optilok 8x12 2 bilat -Multi-Layered Wrap Application Multi-Layer Comp - Bilat ($ ) Treatment Response Procedure Tolerated Well WC - Visit Discharge Discharge Condition Stable Ambulatory Status Ambulatory Transportation Private Auto Medication Reconcilliation completed & No provided to patient/care provider Clinical Summary of Care Provided Yes Assessment/Plan Assessment/Plan (1) Venous insufficiency (chronic) (peripheral): CODE(S): I87.2 - Venous insufficiency (chronic) (peripheral) PLAN: Exam performed Improved erythema, edema, weeping today. No residual infection, no additional antibiotics indicated. Today we will dress with silver alginate, DSD, 3M compression wraps with triamcinolone ointment to EMMIE wound areas. Arterial studies demonstrated normal blood flow to bilateral lower extremity. For venous study results pending. Patient will follow-up on Sunday for dressing changes In the meantime recommend compression elevation and exercise for edema management Patient will return to the lymphedema pumps once edema is improved and erythema resolved Follow-up in 1 week (2) Cellulitis of right lower limb: CODE(S): L03.115 - Cellulitis of right lower limb (3) Cellulitis of left lower limb: CODE(S): L03.116 - Cellulitis of left lower limb
[2023-05-04 08:37] VITALS: BP 147/76; PULSE 55; RESP 18; TEMP 36.7
[2023-05-08 08:06] VITALS: BP 168/75; PULSE 63; RESP 18; TEMP 36.5
--- NOTE | 2023-05-08 09:27 | PN.PCM_ITS ---
History of Present Illness Date of Service: 05/08/23 Chief Complaint: draining legs History of Wound: This 65-year-old male presents to the wound center with draining swollen legs of a number of months duration. Patient has exogenous obesity and chronic lymphedema. He has been seen at the wound center previously for the same problem. He has lymphedema pumps at home. Patient has long- standing essential hypertension and diabetes. The patient is noncompliant with PCP follow-up of his chronic problems. Patient states he does check his blood sugars at home and uses lymphedema pumps. Patient has been wearing Aneesh wraps and gauze bandages on his legs. He has had no fever, chills, myalgias or a rthralgias. Objective Data Objective Data Vital Signs: Vital Signs Temp Pulse Resp BP O2 Del Method 97.7 F L 63 18 168/75 H Room Air 05/08/23 08:06 05/08/23 08:06 05/08/23 08:06 05/08/23 08:06 05/08/23 08:06 Oxygen Delivery Method Room Air Physical Exam Narrative Vascular: Dorsalis and posterior tibial pulses palpable 2 out of 4 bilateral lower extremity. +4 pitting edema to bilateral lower extremity. Diffuse erythema to bilateral lower extremity encompassing entire foot and below the knee skin surface. Neurologic: Light touch protective sensation intact. No evidence of clonus. Dermatologic: Diffuse edema erythema and partial-thickness ulcerations to bilateral lower extremity with erythema. No other signs of infection. Musculoskeletal: Muscular strength full to bilateral lower extremity compartments. No evidence of wound forming deformity noted. Const alert and oriented x3 Debridement Note Debridement Note Post-Debridement Measurements and Additional Note: Post-Debridement Measurements/Treatment - Nurse 1 - General Ulcer Assessment Start: 04/27/23 08:27 Freq: Status: Active Protocol: [email or web address] Activity Type Activity Date Activity User E-sign Co-sign Detail Recorded Client Recorded Date Recorded By Document 04/27/23 08:27 RB Desktop 04/27/23 08:29 RB Document 05/01/23 08:03 KW Desktop 05/01/23 08:10 KW Document 05/04/23 08:37 RB Desktop 05/04/23 08:40 RB Document 05/08/23 08:06 KW Desktop 05/08/23 08:12 KW 04/27/23 05/01/2324 08:27 08:03 08:37 [facility]'s Visit Information Type of service Nurse-only Follow-up Visit Nurse-only Visit (Physician/SUPERVISOR OPENING AND PICKING Visit ) Arrival Mode Ambulatory Ambulatory Ambulatory Transfer Assistance None None Patient Identification Verified (Name & Yes Yes Yes ) Patient Requires Transmission-Based No No Precautions Vital Signs Temperature (97.8 F-99.1 F) 96.6 F L 98.0 F 98.1 F Temperature Source Temporal Temporal Temporal Pulse Rate (60-100) 92 85 55 L Pulse Location Monitor Monitor Respiratory Rate (12-18) 18 18 18 Respiratory rate source Observation Observation Observation Oxygen Delivery Method Room Air Blood Pressure (90/60-120/80) 141/91 H 144/77 H 147/76 H Blood Pressure Mean (mm Hg) 107 99 99 Source Monitor Monitor Monitor Position Semi-Fowlers Semi-Fowlers Semi-Fowlers Blood Pressure Location Left Arm Left Arm Left Arm History Since Last Visit- (Skip if this is Patient's initial visit) Have you changed medications since your No No No last visit? Any new allergies or adverse reactions No No No Had a fall/change in ADL's that may No No No increase risk of falls Signs or symptoms of abuse and/or No No No neglect since last visit Have you been in the hospital since your No No No last visit? Has dressing in place as prescribed Yes No Yes Has compression in place as prescribed Yes No Yes Has offloadiing in place as prescribed No N/A No Experienced any changes in pain level or No No No management Left Footwear Regular Shoe Right Footwear Regular Shoe Pain Scale: 0-10 Numeric Is Patient Pain Free? Yes Yes Yes 05/08/23 08:06 [facility]'s Visit Information Type of service Follow-up Visit (Physician/SUPERVISOR OPENING AND PICKING ) Arrival Mode Ambulatory Transfer Assistance Patient Identification Verified (Name & Yes ) Patient Requires Transmission-Based Precautions Vital Signs Temperature (97.8 F-99.1 F) 97.7 F L Temperature Source Temporal Pulse Rate (60-100) 63 Pulse Location Monitor Respiratory Rate (12-18) 18 Respiratory rate source Observation Oxygen Delivery Method Room Air Blood Pressure (90/60-120/80) 168/75 H Blood Pressure Mean (mm Hg) 106 Source Monitor Position Semi-Fowlers Blood Pressure Location Left Arm History Since Last Visit- (Skip if this is Patient's initial visit) Have you changed medications since your No last visit? Any new allergies or adverse reactions No Had a fall/change in ADL's that may No increase risk of falls Signs or symptoms of abuse and/or No neglect since last visit Have you been in the hospital since your No last visit? Has dressing in place as prescribed Yes Has compression in place as prescribed Yes Has offloadiing in place as prescribed N/A Experienced any changes in pain level or No management Left Footwear Regular Shoe Right Footwear Regular Shoe Pain Scale: 0-10 Numeric Is Patient Pain Free? Yes WC - Nurse 1 - General Ulcer Measurement Start: 04/27/23 08:27 Freq: Status: Active Protocol: Activity Type Activity Date Activity User E-sign Co-sign Detail Recorded Client Recorded Date Recorded By Document 04/27/23 08:27 RB Desktop 04/27/23 08:29 RB Document 05/01/23 08:03 KW Desktop 05/01/23 08:10 KW Document 05/04/23 08:37 RB Desktop 05/04/23 08:40 RB Document 05/08/23 08:06 KW Desktop 05/08/23 08:12 KW 04/27/23 05/01/23 05/04/23 08:27 08:03 08:37 Wound Center Nurse 1 1, R LAT. LOWER LEG -Combined with other wound No -Current Size (cm) - Length 0.1 -Current Size (cm) - Width 0.1 -Current Size (cm) - Depth 0.1 -Total Square Cm 0.01 -Exudate Amt -Exudate Type Serosanguineous -Wound Margin -Granulation Amt -Granulation Quality -Texture (Marcelle-wound Skin Appearance) -Moisture (Marcelle-wound Skin Appearance) -Color (Marcelle-wound Skin Appearance) -Temperature (Marcelle-wound Skin Appearance) -Ulcer Cleansing Soap and Water Lower Limb Edema Present Yes Yes Right Calf (cm) 43 46 40.5 Right Ankle (cm) 28.5 28.2 26.5 Left Calf (cm) 42 46.5 43.2 Left Ankle (cm) 29.5 29.3 28.5 05/08/23 08:06 Wound Center Nurse 1 1, R LAT. LOWER LEG -Combined with other wound -Current Size (cm) - Length 0.1 -Current Size (cm) - Width 0.1 -Current Size (cm) - Depth 0.1 -Total Square Cm 0.01 -Exudate Amt None Present -Exudate Type -Wound Margin Indistinct, Non -Visible -Granulation Amt Large (67-100%) -Granulation Quality Red -Texture (Marcelle-wound Skin Appearance) Assessed -Moisture (Marcelle-wound Skin Appearance) Assessed -Color (Marcelle-wound Skin Appearance) Assessed, Hemosiderin Staining -Temperature (Marcelle-wound Skin No Abnormality Appearance) (Pt Warm) -Ulcer Cleansing Soap and Water Lower Limb Edema Present Right Calf (cm) 40.5 Right Ankle (cm) 26.8 Left Calf (cm) 43 Left Ankle (cm) 27.7 WC - Nurse 2 - General Ulcer CM Notes Start: 04/27/23 08:27 Freq: Status: Active Protocol: Activity Type Activity Date Activity User E-sign Co-sign Detail Recorded Client Recorded Date Recorded By Document 05/01/23 08:32 Laptop 05/01/23 08:32 Document 05/08/23 08:45 Laptop 05/08/23 08:45 05/01/23 05/08/23 08:32 08:45 Wound Center Nurse 2 1, R LAT. LOWER LEG -Correct Patient No No -Correct Side, Site, Position No No -Correct Procedure No No -Procedure Performed No No -Post Debridement (cm) - Length 0.1 -Post Debridement (cm) - Width 0.1 -Post Debridement (cm) - Depth 0.1 -Total Square (Post) (cm) 0.01 -Area of Debridement (cm) - Length 0.1 -Area of Debridement (cm) - Width 0.1 -Total Square (Area) (cm) 0.01 -Wound/Ulcer Outcome Not Healed Not Healed Pain Scale: 0-10 Numeric Is Patient Pain Free? Yes Yes - Nurse 3 - General Ulcer D/C NN Start: 04/27/23 08:27 Freq: Status: Active Protocol: Activity Type Activity Date Activity User E-sign Co-sign Detail Recorded Client Recorded Date Recorded By Document 04/27/23 08:27 RB [employer] 04/27/23 08:29 RB Document 05/01/23 08:53 RB Desktop 05/01/23 08:54 RB Document 05/04/23 08:37 RB Desktop 05/04/23 08:40 RB Document 05/08/23 08:49 RB Desktop 05/08/23 08:50 RB 04/27/23 05/01/23 05/04/23 08:27 08:53 08:37 Vital Signs Temperature (97.8 F-99.1 F) 96.6 F L 98.1 F Temperature Source Temporal Temporal Pulse Rate (60-100) 92 55 L Pulse Location Monitor Monitor Respiratory Rate (12-18) 18 18 Respiratory rate source Observation Observation Blood Pressure (90/60-120/80) 141/91 H 147/76 H Blood Pressure Mean (mm Hg) 107 99 Source Monitor Monitor Position Semi-Fowlers Semi-Fowlers Blood Pressure Location Left Arm Left Arm Pain Scale: 0-10 Numeric Is Patient Pain Free? Yes Yes Yes Wound Care Center Nurse 3 1, R LAT. LOWER LEG -Ulcer Cleansing Wound Cleanser Wound Cleanser -Primary Dressing Applied Optilok 8x12 Optilok 8x12 Optilok 8x12 -Other Dressing triamcinolone triamicinolone triamicinolone cream to LE cream to cream to bilat reddened areas reddened areas -Optilok 8x12 2 2 2 bilat -Multi-Layered Wrap Application Multi-Layer Multi-Layer Multi-Layer Comp - Bilat ($ Comp - Bilat ($ Comp - Bilat ($ ) ) ) Treatment Response Procedure Procedure Procedure Tolerated Well Tolerated Well Tolerated Well WC - Visit Discharge Discharge Condition Stable Stable Stable Ambulatory Status Ambulatory Ambulatory Ambulatory Transportation Private Auto Private Auto Private Auto Medication Reconcilliation completed & No No No provided to patient/care provider Clinical Summary of Care Provided Yes Yes Yes Notes: 05/08/23 08:49 Vital Signs Temperature (97.8 F-99.1 F) Temperature Source Pulse Rate (60-100) Pulse Location Respiratory Rate (12-18) Respiratory rate source Blood Pressure (90/60-120/80) Blood Pressure Mean (mm Hg) Source Position Blood Pressure Location Pain Scale: 0-10 Numeric Is Patient Pain Free? Yes Wound Care Center Nurse 3 1, R LAT. LOWER LEG -Ulcer Cleansing Wound Cleanser -Primary Dressing Applied NonAdherent Contact Layer -Other Dressing triamicinolone cream to reddened areas -Optilok 8x12 bilat -Multi-Layered Wrap Application Multi-Layer Comp - Bilat ($ ) Treatment Response WC - Visit Discharge Discharge Condition Stable Ambulatory Status Ambulatory Transportation Private Auto Medication Reconcilliation completed & No provided to patient/care provider Clinical Summary of Care Provided Yes Notes: Jes TARIQ assisted with 3M application Assessment/Plan Assessment/Plan (1) Venous insufficiency (chronic) (peripheral): CODE(S): I87.2 - Venous insufficiency (chronic) (peripheral) PLAN: Exam performed Improved erythema, edema, weeping today. No residual infection, no additional antibiotics indicated. Today we will dress with silver alginate, DSD, 3M compression wraps with triamcinolone ointment to MARCELLE wound areas. Arterial studies demonstrated normal blood flow to bilateral lower extremity. For venous study results pending. Patient will follow-up on Sunday for dressing changes In the meantime recommend compression elevation and exercise for edema management Patient will return to the lymphedema pumps once edema is improved and erythema resolved Follow-up in 1 week (2) Cellulitis of right lower limb: CODE(S): L03.115 - Cellulitis of right lower limb (3) Cellulitis of left lower limb: CODE(S): L03.116 - Cellulitis of left lower limb
[2023-05-11 12:53] VITALS: BP 163/82; PULSE 72; RESP 18; TEMP 36.3
[2023-05-15 08:20] VITALS: BP 146/89; PULSE 59; RESP 18; TEMP 36.6
--- NOTE | 2023-05-15 09:08 | PN.PCM_ITS ---
History of Present Illness Date of Service: 05/15/23 Chief Complaint: draining legs History of Wound: This 65-year-old male presents to the wound center with draining swollen legs of a number of months duration. Patient has exogenous obesity and chronic lymphedema. He has been seen at the wound center previously for the same problem. He has lymphedema pumps at home. Patient has long- standing essential hypertension and diabetes. The patient is noncompliant with PCP follow-up of his chronic problems. Patient states he does check his blood sugars at home and uses lymphedema pumps. Patient has been wearing Aneesh wraps and gauze bandages on his legs. He has had no fever, chills, myalgias or a rthralgias. Objective Data Objective Data Vital Signs: Vital Signs Temp Pulse Resp BP O2 Del Method 98 F 59 L 18 146/89 H Room Air 05/15/23 08:20 05/15/23 08:20 05/15/23 08:20 05/15/23 08:20 05/08/23 08:06 Oxygen Delivery Method Room Air Physical Exam Narrative Vascular: Dorsalis and posterior tibial pulses palpable 2 out of 4 bilateral lower extremity. +1 pitting edema to bilateral lower extremity. Improving diffuse erythema to bilateral lower extremity encompassing entire foot and below the knee skin surface. Neurologic: Light touch protective sensation intact. No evidence of clonus. Dermatologic: Partial-thickness wounds healed at this time. No acute signs of infection. Musculoskeletal: Muscular strength full to bilateral lower extremity compartments. No evidence of wound forming deformity noted. Const alert and oriented x3 Debridement Note Debridement Note Post-Debridement Measurements and Additional Note: Post-Debridement Measurements/Treatment WC - Nurse 1 - General Ulcer Assessment Start: 04/27/23 08:27 Freq: Status: Active Protocol: [email or web address] Activity Type Activity Date Activity User E-sign Co-sign Detail Recorded Client Recorded Date Recorded By Document 04/27/23 08:27 RB Desktop 04/27/23 08:29 RB Document 05/01/23 08:03 KW Desktop 05/01/23 08:10 KW Document 05/04/23 08:37 RB Desktop 05/04/23 08:40 RB Document 05/08/23 08:06 KW Desktop 05/08/23 08:12 KW Document 05/11/23 12:53 RB [id number] 05/11/23 12:56 RB Document 05/15/23 08:20 RB Desktop 05/15/23 08:22 RB 04/27/23 05/01/23 05/04/23 08:27 08:03 08:37 - Today's Visit Information Type of service Nurse-only Follow-up Visit Nurse-only Visit (Physician/TRAFFIC SIGNAL REPAIRER Visit ) Arrival Mode Ambulatory Ambulatory Ambulatory Transfer Assistance None None Patient Identification Verified (Name & Yes Yes Yes ) Patient Requires Transmission-Based No No Precautions Vital Signs Temperature (97.8 F-99.1 F) 96.6 F L 98.0 F 98.1 F Temperature Source Temporal Temporal Temporal Pulse Rate (60-100) 92 85 55 L Pulse Location Monitor Monitor Respiratory Rate (12-18) 18 18 18 Respiratory rate source Observation Observation Observation Oxygen Delivery Method Room Air Blood Pressure (90/60-120/80) 141/91 H 144/77 H 147/76 H Blood Pressure Mean (mm Hg) 107 99 99 Source Monitor Monitor Monitor Position Semi-Fowlers Semi-Fowlers Semi-Fowlers Blood Pressure Location Left Arm Left Arm Left Arm History Since Last Visit- (Skip if this is Patient's initial visit) Have you changed medications since your No No No last visit? Any new allergies or adverse reactions No No No Had a fall/change in ADL's that may No No No increase risk of falls Signs or symptoms of abuse and/or No No No neglect since last visit Have you been in the hospital since your No No No last visit? Has dressing in place as prescribed Yes No Yes Has compression in place as prescribed Yes No Yes Has offloadiing in place as prescribed No N/A No Experienced any changes in pain level or No No No management Left Footwear Regular Shoe Right Footwear Regular Shoe Pain Scale: 0-10 Numeric Is Patient Pain Free? Yes Yes Yes 05/08/23 05/11/23 05/15/23 08:06 12:53 08:20 - Today's Visit Information Type of service Follow-up Visit Nurse-only Follow-up Visit (Physician/TRAFFIC SIGNAL REPAIRER Visit (Physician/TRAFFIC SIGNAL REPAIRER ) ) Arrival Mode Ambulatory Ambulatory Ambulatory Transfer Assistance None None Patient Identification Verified (Name & Yes Yes Yes ) Patient Requires Transmission-Based No Precautions Vital Signs Temperature (97.8 F-99.1 F) 97.7 F L 97.4 F L 98 F Temperature Source Temporal Temporal Temporal Pulse Rate (60-100) 63 72 59 L Pulse Location Monitor Monitor Monitor Respiratory Rate (12-18) 18 18 18 Respiratory rate source Observation Observation Observation Oxygen Delivery Method Room Air Blood Pressure (90/60-120/80) 168/75 H 163/82 H 146/89 H Blood Pressure Mean (mm Hg) 106 109 108 Source Monitor Monitor Monitor Position Semi-Fowlers Semi-Fowlers Sitting Blood Pressure Location Left Arm Left Arm Left Arm History Since Last Visit- (Skip if this is Patient's initial visit) Have you changed medications since your No No No last visit? Any new allergies or adverse reactions No No No Had a fall/change in ADL's that may No No No increase risk of falls Signs or symptoms of abuse and/or No No No neglect since last visit Have you been in the hospital since your No No No last visit? Has dressing in place as prescribed Yes Yes Yes Has compression in place as prescribed Yes Yes Yes Has offloadiing in place as prescribed N/A No No Experienced any changes in pain level or No No No management Left Footwear Regular Shoe Right Footwear Regular Shoe Pain Scale: 0-10 Numeric Is Patient Pain Free? Yes Yes Yes WC - Nurse 1 - General Ulcer Measurement Start: 04/27/23 08:27 Freq: Status: Active Protocol: Activity Type Activity Date Activity User E-sign Co-sign Detail Recorded Client Recorded Date Recorded By Document 04/27/23 08:27 RB Desktop 04/27/23 08:29 RB Document 05/01/23 08:03 KW Desktop 05/01/23 08:10 KW Document 05/04/23 08:37 RB Desktop 05/04/23 08:40 RB Document 05/08/23 08:06 KW Desktop 05/08/23 08:12 KW Document 05/11/23 12:53 RB [id number] 05/11/23 12:56 RB Document 05/15/23 08:20 RB Desktop 05/15/23 08:22 RB 04/27/23 05/01/23 05/04/23 08:27 08:03 08:37 Wound Center Nurse 1 1, R LAT. LOWER LEG -Combined with other wound No -Current Size (cm) - Length 0.1 -Current Size (cm) - Width 0.1 -Current Size (cm) - Depth 0.1 -Total Square Cm 0.01 -Epithelialization -Exudate Amt -Exudate Type Serosanguineous -Wound Margin -Granulation Amt -Granulation Quality -Texture (Marcelle-wound Skin Appearance) -Moisture (Marcelle-wound Skin Appearance) -Color (Marcelle-wound Skin Appearance) -Temperature (Marcelle-wound Skin Appearance) -Ulcer Cleansing Soap and Water Lower Limb Edema Present Yes Yes Right Calf (cm) 43 46 40.5 Right Ankle (cm) 28.5 28.2 26.5 Left Calf (cm) 42 46.5 43.2 Left Ankle (cm) 29.5 29.3 28.5 05/08/23 05/11/23 05/15/23 08:06 12:53 08:20 Wound Center Nurse 1 1, R LAT. LOWER LEG -Combined with other wound No -Current Size (cm) - Length 0.1 0 -Current Size (cm) - Width 0.1 0 -Current Size (cm) - Depth 0.1 0 -Total Square Cm 0.01 0 -Epithelialization Large 67-100% -Exudate Amt None Present Medium -Exudate Type Serosanguineous -Wound Margin Indistinct, Non -Visible -Granulation Amt Large (67-100%) -Granulation Quality Red -Texture (Marcelle-wound Skin Appearance) Assessed -Moisture (Marcelle-wound Skin Appearance) Assessed -Color (Marcelle-wound Skin Appearance) Assessed, Hemosiderin Staining -Temperature (Marcelle-wound Skin No Abnormality Appearance) (Pt Warm) -Ulcer Cleansing Soap and Water Lower Limb Edema Present Yes Yes Right Calf (cm) 40.5 40.5 39.5 Right Ankle (cm) 26.8 26.5 26.2 Left Calf (cm) 43 42.5 42 Left Ankle (cm) 27.7 27 27.4 WC - Nurse 2 - General Ulcer CM Notes Start: 04/27/23 08:27 Freq: Status: Active Protocol: Activity Type Activity Date Activity User E-sign Co-sign Detail Recorded Client Recorded Date Recorded By Document 05/01/23 08:32 Laptop 05/01/23 08:32 Document 05/08/23 08:45 Laptop 05/08/23 08:45 Document 05/15/23 08:34 Laptop 05/15/23 08:34 JF 05/01/23 05/08/23 05/15/23 08:32 08:45 08:34 Wound Center Nurse 2 1, R LAT. LOWER LEG -Correct Patient No No No -Correct Side, Site, Position No No No -Correct Procedure No No No -Procedure Performed No No No -Post Debridement (cm) - Length 0.1 -Post Debridement (cm) - Width 0.1 -Post Debridement (cm) - Depth 0.1 -Total Square (Post) (cm) 0.01 -Area of Debridement (cm) - Length 0.1 -Area of Debridement (cm) - Width 0.1 -Total Square (Area) (cm) 0.01 -Wound/Ulcer Outcome Not Healed Not Healed Not Healed Pain Scale: 0-10 Numeric Is Patient Pain Free? Yes Yes Yes WC - Nurse 3 - General Ulcer D/C NN Start: 04/27/23 08:27 Freq: Status: Active Protocol: Activity Type Activity Date Activity User E-sign Co-sign Detail Recorded Client Recorded Date Recorded By Document 04/27/23 08:27 RB Desktop 04/27/23 08:29 RB Document 05/01/23 08:53 RB Desktop 05/01/23 08:54 RB Document 05/04/23 08:37 RB Desktop 05/04/23 08:40 RB Document 05/08/23 08:49 RB Desktop 05/08/23 08:50 RB Document 05/11/23 12:53 RB [id number] 05/11/23 12:56 RB Document 05/15/23 08:59 RB Desktop 05/15/23 09:00 RB 04/27/23 05/01/23 05/04/23 08:27 08:53 08:37 Vital Signs Temperature (97.8 F-99.1 F) 96.6 F L 98.1 F Temperature Source Temporal Temporal Pulse Rate (60-100) 92 55 L Pulse Location Monitor Monitor Respiratory Rate (12-18) 18 18 Respiratory rate source Observation Observation Blood Pressure (90/60-120/80) 141/91 H 147/76 H Blood Pressure Mean (mm Hg) 107 99 Source Monitor Monitor Position Semi-Fowlers Semi-Fowlers Blood Pressure Location Left Arm Left Arm Pain Scale: 0-10 Numeric Is Patient Pain Free? Yes Yes Yes Wound Care Center Nurse 3 1, R LAT. LOWER LEG -Ulcer Cleansing Wound Cleanser Wound Cleanser -Primary Dressing Applied Optilok 8x12 Optilok 8x12 Optilok 8x12 -Other Dressing triamcinolone triamicinolone triamicinolone cream to LE cream to cream to bilat reddened areas reddened areas -Other Covering -Optilok 8x12 2 2 2 bilat -Multi-Layered Wrap Application Multi-Layer Multi-Layer Multi-Layer Comp - Bilat ($ Comp - Bilat ($ Comp - Bilat ($ ) ) ) Treatment Response Procedure Procedure Procedure Tolerated Well Tolerated Well Tolerated Well WC - Visit Discharge Discharge Condition Stable Stable Stable Ambulatory Status Ambulatory Ambulatory Ambulatory Transportation Private Auto Private Auto Private Auto Medication Reconcilliation completed & No No No provided to patient/care provider Clinical Summary of Care Provided Yes Yes Yes Notes: 05/08/23 05/11/23 05/15/23 08:49 12:53 08:59 Vital Signs Temperature (97.8 F-99.1 F) 97.4 F L Temperature Source Temporal Pulse Rate (60-100) 72 Pulse Location Monitor Respiratory Rate (12-18) 18 Respiratory rate source Observation Blood Pressure (90/60-120/80) 163/82 H Blood Pressure Mean (mm Hg) 109 Source Monitor Position Semi-Fowlers Blood Pressure Location Left Arm Pain Scale: 0-10 Numeric Is Patient Pain Free? Yes Yes Yes Wound Care Center Nurse 3 1, R LAT. LOWER LEG -Ulcer Cleansing Wound Cleanser Wound Cleanser Wound Cleanser -Primary Dressing Applied NonAdherent NonAdherent NonAdherent Contact Layer Contact Layer Contact Layer -Other Dressing triamicinolone trimicinolone triamicinolone cream to cream to cream reddened areas reddened areas top adaptic and abd pads -Other Covering abd -Optilok 8x12 bilat -Multi-Layered Wrap Application Multi-Layer Multi-Layer Multi-Layer Comp - Bilat ($ Comp - Bilat ($ Comp - Bilat ($ ) ) ) Treatment Response Procedure Tolerated Well WC - Visit Discharge Discharge Condition Stable Stable Stable Ambulatory Status Ambulatory Ambulatory Ambulatory Transportation Private Auto Private Auto Private Auto Medication Reconcilliation completed & No No No provided to patient/care provider Clinical Summary of Care Provided Yes Yes Yes Notes: Jes TARIQ assisted with 3M application Assessment/Plan Assessment/Plan (1) Venous insufficiency (chronic) (peripheral): CODE(S): I87.2 - Venous insufficiency (chronic) (peripheral) PLAN: Exam performed Improved erythema, edema, resolved weeping today. No residual infection, no additional antibiotics indicated. Today we will dress with silver alginate, DSD, 3M compression wraps with triamcinolone ointment to MARCELLE wound areas. Arterial studies demonstrated normal blood flow to bilateral lower extremity. Patient will follow-up on Sunday for dressing changes In the meantime recommend compression elevation and exercise for edema management Patient will return to the lymphedema pumps once edema is improved and erythema resolved Follow-up in 1 week Patient has lymphedema pumps at home. Will order patient custom compression stockings upon completion of care. Discussed with patient importance of compression elevation exercise for edema management today. (2) Cellulitis of right lower limb: CODE(S): L03.115 - Cellulitis of right lower limb (3) Cellulitis of left lower limb: CODE(S): L03.116 - Cellulitis of left lower limb
== END 2023-05-27 23:59 | disposition home or self-care (01) ==
LOC: WC 08:00
PROVIDERS: Visit Provider Podiatrist
DX: E11.622 Type 2 diabetes mellitus with other skin ulcer (principal); L97.919 Non-pressure chronic ulcer of unspecified part of right lower leg with unspecified severity; L97.929 Non-pressure chronic ulcer of unspecified part of left lower leg with unspecified severity; E11.51 Type 2 diabetes mellitus with diabetic peripheral angiopathy without gangrene; I87.2 Venous insufficiency (chronic) (peripheral); R60.0 Localized edema; I89.0 Lymphedema, not elsewhere classified; I10 Essential (primary) hypertension; E66.09 Other obesity due to excess calories; Z79.01 Long term (current) use of anticoagulants; Z79.899 Other long term (current) drug therapy; Z91.199 Patient's noncompliance with other medical treatment and regimen due to unspecified reason
CPT/HCPCS: 29581; 93923; 93970; 99213; G0463